=== PATIENT | female | born 1930 | race African-American/Black ===

== ENCOUNTER 2017-04-23 14:03 | Observation (INO) | payer MEDICARE, MEDICAID ==
[~2017-04-23] VITALS: Ht 157.5 cm; Wt 50.0 kg
[~2017-04-23 14:03] MED LIST: ALENDRONATE70 MG PO; ALPRAZOLAM0.25 MG PO; AMITRIPTYLIN25 MG PO; AMOX/K CLAV875 M1 PO; AMOXICILLIN500 MG PO; AMOXICILLIN875 MG PO; AUGMENTIN500TAB PO; BACTRIM DS1 TAB PO; CELEBREX100 MG PO; CELEXA10 MG PO; CEPACOL2 MG MT; CEPHALEXIN500 MG PO; DIOVAN80 MG PO; DONEPEZIL5 MG PO; ENSURE PO; ESCITALOPRAM OX10 MG PO; EXELON TD; FLUZONE SPLT1 M1 IM; LORTAB 5-325 MG1 TAB PO; LOSARTAN POT50 MG PO; MELOXICAM15 MG PO; METFORMIN500 MG PO; NEURONTIN100 MG PO; NYSTATIN100000 M1 PO; OMEPRAZOLE40 MG PO; PRILOSEC40 MG PO; ROBITUSSIN AC10 ML PO; TRAMADOL HCL50 MG PO; TUBERSOL5 MG/0.1 M ID; ULTRAM50 M1 PO; ZOCOR20 M1 PO; ZOLPIDEM5 M1 PO
[2017-04-23] MEDS ORDERED: METFORMIN500 MG PO (14:24)
[2017-04-23] MEDS ORDERED: QUETIAPINE FUMA25 MG PO (14:24)
[2017-04-23] MEDS ORDERED: THEO-24200 MG PO (14:25)
[2017-04-23] MEDS ORDERED: DONEPEZIL5 MG PO (14:26)
[2017-04-23] MEDS ORDERED: FAMOTIDINE20 M1 PO (14:27)
[2017-04-23] MEDS ORDERED: ESCITALOPRAM OX10 MG PO (14:27)
[2017-04-23] MEDS ORDERED: RIVASTIGMINE3 MG PO (14:27)
[2017-04-23 14:55] LABS: HEMATOCRIT 36.5 % (37.0-47.0); HEMOGLOBIN 11.8 g/dl (12.0-16.0); IMMATURE GRANULOCYTES 0.7 % (0.0-1.0); MEAN CELL VOLUME 83.3 fL CALC (80.0-100.0); MEAN CORPUSCULAR HGB 26.9 pG CALC (26.0-32.0); MEAN CORPUSCULAR HGB CONC 32.3 g/L CALC (32.0-36.0); NEUT# 9.16 thou/uL (2.00-7.15); RED BLOOD COUNT 4.38 mill/uL (4.20-5.60); RED CELL DISTRI WIDTH 14.8 % (11.5-15.5)
[2017-04-23 15:14] LABS: CREATININE 1.1 mg/dL (0.5-1.0); POTASSIUM 4.7 mmol/l (3.5-5.1)
[2017-04-23 17:03] LABS: URINE BILIRUBIN - DIPSTICK NEGATIVE (NEGATIVE); URINE BLOOD DIPSTICK NEGATIVE (NEGATIVE); URINE COLOR YELLOW; URINE GLUCOSE - DIPSTICK NEGATIVE (NEGATIVE); URINE KETONE NEGATIVE (NEGATIVE); URINE LEUK ESTERASE NEGATIVE (NEGATIVE); URINE NITRITE - DIPSTICK NEGATIVE (Negative); URINE PH 6.5 (4.5-8.0); URINE PROTEIN - DIPSTICK NEGATIVE (NEG-TRACE); URINE UROBILINOGEN - DIPSTICK 0.2 E.U./dL (0.2)
[2017-04-23 17:05] LABS: URINE CLARITY CLEAR
[2017-04-23 19:25] VITALS: BP 155/80
[2017-04-23 23:01] VITALS: BP 130/71
[2017-04-24 04:20] VITALS: BP 122/75
[2017-04-24 05:03] LABS: HEMOGLOBIN 11.1 g/dl (12.0-16.0); MEAN CELL VOLUME 81.7 fL CALC (80.0-100.0); MEAN CORPUSCULAR HGB 26.7 pG CALC (26.0-32.0); MEAN CORPUSCULAR HGB CONC 32.6 g/L CALC (32.0-36.0); RED BLOOD COUNT 4.16 mill/uL (4.20-5.60); RED CELL DISTRI WIDTH 14.8 % (11.5-15.5)
[2017-04-24 05:12] LABS: CREATININE 1.2 mg/dL (0.5-1.0); MAGNESIUM 1.6 mg/dL (1.6-2.3); POTASSIUM 4.8 mmol/l (3.5-5.1)
[2017-04-24 07:09] VITALS: BP 108/68
== END 2017-04-24 14:15 | disposition home or self-care (01) ==
LOC: ED 14:03 → ED-I 17:55 → ED 18:06 → MS2 18:07
PROVIDERS: Family Medicine; ADMIT Internal Medicine; ATTEND Internal Medicine
DX: R55 Syncope and collapse (principal); I10 Essential (primary) hypertension; E11.9 Type 2 diabetes mellitus without complications; F32.9 Major depressive disorder, single episode, unspecified; F41.9 Anxiety disorder, unspecified; F03.90 Unspecified dementia, unspecified severity, without behavioral disturbance, psychotic disturbance, mood disturbance, and anxiety